=== PATIENT | male | born 1945 | race Caucasian/White ===

== ENCOUNTER → 2017-09-18 | Outpatient (CLI) | payer MEDICARE, MEDICAID ==
[~2017-09-18] MED LIST: ANORO ELLIPTA1 POW IH; BISOPROLOL 5MG T5 MG PO; BUSPAR 10MG TAB10 MG PO; CARDIZEM CD 24240 MG PO; CRESTOR5 MG PO; ELIQUIS5 MG PO; FUROSEMIDE40 MG PO; HCTZ/LISINOPRIL1 TA3 PO; HUMALOG MIX 75/10 ML SC; ISOSORBIDE30 MG PO; METFORMIN HCL1000 MG PO; METOPROLOL TAR100 MG PO; MONTELUKAST SOD10 MG PO; NORCO 325 MG-51 TAB PO; RESTORIL 30MG C30 MG PO
--- NOTE | 2017-09-18 14:26 | RADIOLOGY REPORT PS360 ---
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 Normal heart size. No evidence of CHF. There is COPD. Increased markings are present in the right lung base is 1 area of infiltrate/pneumonia. There are minimal atelectatic or fibrotic changes in the left lung base. IMPRESSION: COPD with right lower lobe pneumonia
== END ==
LOC: RAD 13:26
DX: R09.02 Hypoxemia (principal)